=== PATIENT | female | born 1990 | race Caucasian/White ===

== ENCOUNTER 2017-03-07 16:57 | Emergency (ER) | payer OTHER ==
[2017-03-07 17:03] VITALS: BP 146/95
[2017-03-07] MEDS ORDERED: TETRACAINE HCL 0.5% OPH SOLN 2 ML OU ONE (17:38)
--- NOTE | 2017-03-07 17:39 | ER Document Report ---
HPI - HPI Patient complains to provider of: Blurred vision Onset: Other - 2 weeks Onset/Duration: Worse Quality of pain: No pain Pain Level: 0 Context: Patient complains of blurred vision to bilateral eyes for the past 2 weeks. Patient did see a image archivist on 02/27/2017 and was given a new prescription for contact lenses as well as prescription for glasses. Patient did not buy any new glasses although was given a sample of contact lenses. Patient did follow-up with hardboard coating machine operator 2 days later and was told that she had patches to bilateral corneas was placed on Tobradex. Patient states that she did see the image archivist yesterday for repeat examination and was told to continue the eyedrops but that they felt that her symptoms were likely due to some type of viral illness that did not warrant any antiviral eyedrops. Patient does have an appointment in 2 days for recheck. Patient states that her blurred vision worsened today which prompted her visit. Patient states that her eyes will occasionally be red although not presently red. Patient denies any drainage or pain to the eyes. Patient has not worn her contact lenses since the of this month. Associated Symptoms: Other - Blurred vision Exacerbated by: Denies Relieved by: Denies Similar symptoms previously: No Recently seen / treated by doctor: Yes - ROS ROS below otherwise negative: Yes Systems Reviewed and Negative: Yes All other systems reviewed and negative - EENT EENT: REPORTS: Eye problems - NEURO Neurology: DENIES: Headache, Weakness - DERM Skin Color: Normal Skin Problems: None Past Medical History - General Information source: Patient - Social History Smoking Status: Never Smoker Frequency of alcohol use: Occasional Drug Abuse: None Occupation: nurse Lives with: Family Family History: Reviewed & Not Pertinent - Medical History Medical History: Other - hx lyme disease Renal/ Medical History: Denies: Hx Peritoneal Dialysis Skin Medical History: Reports Hx Psoriasis Past Surgical History: Reports: Hx Oral Surgery Vertical Provider Document - CONSTITUTIONAL Agree With Documented VS: Yes Exam Limitations: No Limitations General Appearance: WD/WN, No Apparent Distress - INFECTION CONTROL TRAVEL OUTSIDE OF THE [place] IN LAST 30 DAYS: No - HEENT HEENT: Atraumatic, Normocephalic Notes: Patient with minimal fluorescein uptake to right eye at the 8 o'clock position and 6 o'clock position, concerning for corneal ulcer. Extraocular movements intact, PERRL, sclera clear bilaterally, no exudates. Patient with small foreign body from patient's eye makeup easily removed from bilateral eyes during eye exam. No dendrite. EOMI - NECK Neck: Normal Inspection - RESPIRATORY Respiratory: No Respiratory Distress O2 Sat by Pulse Oximetry: 99 - BACK Back: Normal Inspection - MUSCULOSKELETAL/EXTREMETIES Musculoskeletal/Extremeties: MAEW - NEURO Level of Consciousness: Awake, Alert, Appropriate - DERM Integumentary: Warm, Dry Course - Re-evaluation Re-evalutation: 03/07/17 18:15 Dr. Felix to bedside for examination, recommends continuing TobraDex and having patient follow up with ophthalmology tomorrow for recheck 03/07/17 18:55 Patient is prime insurance and has not been assigned a primary care provider. Patient states she just moved to the area and there is concerned that patient will have difficulty in following up with ophthalmology as she will not be able to get a stat referral performed by primary care provider. Patient states that she already knows that her image archivist is not in the office tomorrow and will be back until Wednesday of this week. Call placed to [facility] ophthalmology applications coordinator Dr. Swanson who advises having patient follow up in his office tomorrow at 8:30 in the morning on the second floor of the main part of the hospital. Recommends continuing the TobraDex does not recommend any additional medication changes at this time. 03/07/17 18:57 The patient has been informed that they may have pre-hypertension or hypertension based on a blood pressure reading in the emergency department. I recommend that patient call the primary care provider listed on their discharge instructions or a physician of their choice by this week to arrange follow-up for further evaluation of possible pre-hypertension or hypertension. - Vital Signs Vital signs: Temp Pulse Resp BP Pulse Ox 99.8 F 92 18 146/95 H 99 03/07/17 17:02 03/07/17 17:02 03/07/17 17:02 03/07/17 17:02 03/07/17 17:02 Procedures - Eye Procedure Right Slit lamp used: Yes Eyes picture: 1 - fluroscein uptake 2mm 2 - fluoroscein uptake 1x4 mm Discharge - Discharge Clinical Impression: Elevated blood pressure reading, Blurred vision, bilateral Cornea ulcer Qualifiers: Laterality: right Qualified Code(s): H16.001 - Unspecified corneal ulcer, right eye Condition: Stable Disposition: HOME, SELF-CARE Instructions: Corneal Ulceration ([facility]), Eyedrop Use ([facility]) Additional Instructions: Follow-up with Dr. Swanson at 830 tomorrow morning on the second floor of the main hospital in the ophthalmology department. Return medially for any new or worsening symptoms Continue to take your Tobradex as previously prescribed Forms: Elevated Blood Pressure, Return to Work Referrals: [facility] [Provider Group] - Follow up tomorrow
== END 2017-03-07 18:58 | disposition home or self-care (01) ==
LOC: ER 16:57
DX: H16.001 Unspecified corneal ulcer, right eye (principal); H53.8 Other visual disturbances; R03.0 Elevated blood-pressure reading, without diagnosis of hypertension; Z79.899 Other long term (current) drug therapy
CPT/HCPCS: 99283